=== PATIENT | male | born 1985 | race Caucasian/White ===

== ENCOUNTER 2017-09-22 11:13 | Emergency (ER) | payer OTHER ==
[~2017-09-22] VITALS: Ht 177.8 cm; Wt 65.4 kg
[~2017-09-22 11:13] MED LIST: FLEXERIL10 MG PO; FLOMAX0.4 MG PO; IMITREX50 MG PO; MOTRIN600 MG PO; NAPROSYN500 MG PO; NAPROXEN500 MG PO; PROMETHAZINE HC25 M1 PO; TORADOL10 MG PO; ZOFRAN ODT4 MG PO
[2017-09-22 12:31] LABS: HEMATOCRIT 39.4 % (38.0-50.0); HEMOGLOBIN 13.9 G/DL (12.5-16.6); MCH 31.3 PG (29.0-34.0); MCHC 35.3 G/DL (30.0-36.0); MCV 88.7 FL (86-99); PLATELET COUNT 242 K/uL (156-360); RBC DIS.WIDTH-CV 11.5 % (11.8-14.6); RBC DIS.WIDTH-SD 36.9 % (39-53); RED BLOOD COUNT 4.44 M/uL (4.00-5.50); WHITE BLOOD COUNT 6.4 K/uL (4.1-10.2)
[2017-09-22 12:39] LABS: CHLORIDE 103 mEq/L (99-109); POTASSIUM 3.9 mEq/L (3.7-5.4); SODIUM 138 mEq/L (136-147)
[2017-09-22 12:41] LABS: GLUCOSE 97 mg/dL (70-99)
[2017-09-22 12:44] LABS: SERUM ETHYL ALCOHOL < 10 mg/dL
[2017-09-22 12:45] LABS: CREATININE 0.7 mg/dL (0.6-1.3); GFR ESTIMATE (CALCULATED) > 59 mL/min/ (58.99-99999)
[2017-09-22 12:46] LABS: UREA NITROGEN (BUN) 7 mg/dL (9-23)
[2017-09-22 13:28] VITALS: BP 133/77
== END 2017-09-22 13:28 | disposition home or self-care (01) ==
LOC: EME 11:13
PROVIDERS: Emergency Medicine
DX: F32.9 Major depressive disorder, single episode, unspecified (principal); F43.10 Post-traumatic stress disorder, unspecified; Z04.6 Encounter for general psychiatric examination, requested by authority; R56.9 Unspecified convulsions; F17.200 Nicotine dependence, unspecified, uncomplicated
CPT/HCPCS: 80048; 85027; 90837; 99281; 99285; G0480

== ENCOUNTER 2018-03-26 14:26 | Emergency (ER) | payer OTHER ==
[~2018-03-26] VITALS: Ht 182.9 cm; Wt 71.3 kg
[2018-03-26] MEDS ORDERED: MOTRIN600 MG PO (16:10)
[2018-03-26] MEDS ORDERED: NORCO 5/3251 TABLET PO (16:10)
[2018-03-26] MEDS ORDERED: AMOXICILLIN875 MG PO (16:10)
[2018-03-26 17:01] VITALS: BP 120/75
== END 2018-03-26 17:02 | disposition home or self-care (01) ==
LOC: EME 14:26
DX: K05.10 Chronic gingivitis, plaque induced (principal); F32.9 Major depressive disorder, single episode, unspecified; F41.9 Anxiety disorder, unspecified; F43.10 Post-traumatic stress disorder, unspecified; F17.200 Nicotine dependence, unspecified, uncomplicated
CPT/HCPCS: 99281; 99283

== ENCOUNTER 2018-04-04 18:53 | Emergency (ER) | payer OTHER ==
[~2018-04-04] VITALS: Ht 180.3 cm; Wt 70.9 kg
[~2018-04-04 18:53] MED LIST changes: +AMOXICILLIN875 MG PO; +NORCO 5/3251 TABLET PO
[2018-04-04 19:07] VITALS: BP 113/73
[2018-04-04 19:30] LABS: HEMATOCRIT 43.2 % (38.0-50.0); MCH 31.2 PG (29.0-34.0); MCHC 34.7 G/DL (30.0-36.0); MCV 89.8 FL (86-99); PLATELET COUNT 230 K/uL (156-360); RBC DIS.WIDTH-CV 11.9 % (11.8-14.6); RBC DIS.WIDTH-SD 38.8 % (39-53); RED BLOOD COUNT 4.81 M/uL (4.00-5.50)
[2018-04-04 19:42] LABS: ALBUMIN 4.6 g/dL (3.2-4.8); CHLORIDE 104 mEq/L (99-109); POTASSIUM 4.2 mEq/L (3.7-5.4); SODIUM 142 mEq/L (136-147)
[2018-04-04 19:44] LABS: GLUCOSE 91 mg/dL (70-99)
[2018-04-04 19:45] LABS: TOTAL PROTEIN 7.4 g/dL (6.4-8.3)
[2018-04-04 19:46] LABS: TOTAL BILIRUBIN 0.4 mg/dL (0.0-1.0)
[2018-04-04 19:48] LABS: ALKALINE PHOSPHATASE 73 IU/L (3-129); CREATININE 0.8 mg/dL (0.6-1.3); GFR ESTIMATE (CALCULATED) > 59 mL/min/ (58.99-99999)
[2018-04-04 19:49] LABS: UREA NITROGEN (BUN) 9 mg/dL (9-23)
[2018-04-04 19:50] LABS: AST (GOT) 23 IU/L (2-34)
[2018-04-04 19:51] LABS: ALT (GPT) 24 IU/L (3-49)
[2018-04-05] MEDS ORDERED: FIORICET 50-301 EAC1 PO (08:56)
== END 2018-04-04 21:52 | disposition left against medical advice (07) ==
LOC: EME 18:53
DX: R51 Headache (principal); Z53.21 Procedure and treatment not carried out due to patient leaving prior to being seen by health care provider
CPT/HCPCS: 80053; 85027

== ENCOUNTER 2018-04-05 06:43 | Emergency (ER) | payer OTHER ==
[~2018-04-05] VITALS: Ht 180.3 cm; Wt 71.2 kg
[2018-04-05 07:57] LABS: HEMATOCRIT 40.8 % (38.0-50.0); HEMOGLOBIN 14.2 G/DL (12.5-16.6); MCH 31.4 PG (29.0-34.0); MCHC 34.8 G/DL (30.0-36.0); MCV 90.3 FL (86-99); PLATELET COUNT 206 K/uL (156-360); RBC DIS.WIDTH-SD 39.5 % (39-53); RED BLOOD COUNT 4.52 M/uL (4.00-5.50); WHITE BLOOD COUNT 5.9 K/uL (4.1-10.2)
[2018-04-05 08:26] LABS: CHLORIDE 106 MEQ/L (99-109); CREATININE 0.8 MG/DL (0.6-1.3); GFR ESTIMATE (CALCULATED) > 59 mL/min/ (58.99-99999); GLUCOSE 101 mg/dL (70-99); SODIUM 139 MEQ/L (136-147); UREA NITROGEN (BUN) 9 mg/dL (9-23)
[2018-04-05] MEDS ORDERED: FIORICET 50-301 EAC1 PO (08:56)
[2018-04-05 09:13] VITALS: BP 104/70
[2018-04-05 09:15] LABS: ERTH.SED.RATE 5 MM/HR (0-15)
== END 2018-04-05 09:17 | disposition home or self-care (01) ==
LOC: EME 06:43
PROVIDERS: Nurse Practitioner Family
DX: G43.009 Migraine without aura, not intractable, without status migrainosus (principal); K02.9 Dental caries, unspecified; F17.200 Nicotine dependence, unspecified, uncomplicated
CPT/HCPCS: 80048; 85027; 85651; 86140; 99281; 99283; J1885